=== PATIENT | female | born 1995 ===

== ENCOUNTER 2017-03-12 19:52 | Emergency (ER) | payer OTHER ==
[2017-03-12 19:55] VITALS: BP 129/77; PULSE 100; RESP 20; TEMP 99; O2SAT 99
[2017-03-12] MEDS ORDERED: Bacitracin 500 Units/gm Oint Foilpak UD TOP STA (20:00)
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
[2017-03-12 20:47] LABS: BASO % 0.5 % (0.0-2.0); EOS # 0.1 K/uL (0.0-0.7); EOS % 0.9 % (0.0-4.0); HEMATOCRIT 36.9 % (34.0-47.0); LYMPH # 2.1 K/uL (1.0-4.3); LYMPH % 23.9 % (20.0-40.0); MEAN CELL VOLUME 86.7 fl (81.0-99.0); MEAN CORPUSCULAR HEMOGLOBIN 28.9 pg (27.0-31.0); MEAN CORPUSCULAR HGB CONC 33.3 g/dL (33.0-37.0); MEAN PLATELET VOLUME 9.3 fl (7.2-11.7); MONO # 0.6 K/uL (0.0-0.8); MONO % 6.3 % (0.0-10.0); NEUT % 68.4 % (50.0-75.0); RED CELL DISTRIBUTION WIDTH 13.5 % (11.5-14.5); WHITE BLOOD COUNT 8.8 K/uL (4.8-10.8)
[2017-03-12 21:05] LABS: ALB/GLOB RATIO 1.1 (1.0-2.1); ALKALINE PHOSPHATASE 90 U/L (38-126); ALT/SGPT 124 U/L (9-52); AST/SGOT 63 U/L (14-36); BILIRUBIN,TOTAL 0.3 mg/dl (0.2-1.3); BLOOD UREA NITROGEN 11 mg/dl (7-17); CALCIUM 9.5 mg/dL (8.4-10.2); CARBON DIOXIDE 24 mmol/L (22-30); CHLORIDE 103 mmol/L (98-107); GFR AFRICAN-AMERICAN > 60; GLUCOSE,RANDOM 105 mg/dL (65-105); POTASSIUM 3.9 MMOL/L (3.6-5.0); SODIUM 140 mmol/l (132-148); TOTAL PROTEIN 8.6 G/DL (6.3-8.2)
--- NOTE | 2017-03-12 21:53 | US ---
EXAM: US Uterus CLINICAL HISTORY: 21 years old, female; Screening exam; Routine us, uterus; Additional info: Trauma TECHNIQUE: Real-time ultrasound of the maternal uterus with image documentation. COMPARISON: No relevant prior studies available. FINDINGS: Uterus: There is a well formed gestational sac within the endometrial canal. A pole and yolk sac are seen within the gestational sac. [place] rump length measurement correlates with an estimated gestational age of 8 weeks 3 days. cardiac activity is seen with a heart rate of 172 beats per minute. Adnexa: The ovaries are unremarkable in appearance. Free fluid: None. IMPRESSION: Single live IUP as above.
== END 2017-03-12 22:40 | disposition home or self-care (01) ==
LOC: H.ER 19:52
DX: S60.511A Abrasion of right hand, initial encounter (principal); W22.8XXA Striking against or struck by other objects, initial encounter; Y92.89 Other specified places as the place of occurrence of the external cause; Z33.1 Pregnant state, incidental

== ENCOUNTER 2017-10-11 15:05 | Emergency (ER) | payer OTHER ==
[2017-10-11] MEDS ORDERED: Phenaphthazine-PH Test Paper VI ONE (16:31)
--- NOTE | 2017-10-11 17:13 | OBHP ---
Datetime: 10/11/2017 16:00 IP Adm Impression: Term, intrauterine IP Admit Plan: Discharge home Admit Comment, IP Provider: 22 yo ega 40.00 based on LMP 01/04/2017 presents with suspected ROM and contractions,which began 1 day ago. She shares that she felt a gush of fluid while urinating. Sh e also shares of pelvic pain that feels like contractions every 5 minutes along with lumbar pain. She also noticed pink mucous discharge +: fm, ctx -: cp/sob/n/v pnc: n khloe gyne: hx of RPR + concentration in 08/27/2017 of 1:2 previously treated. medical hx: none famhx: htn, dm, pancreatic ca surg: none soc: denies smoking, etoh, illicit drugs rx: pnv NKDA Gen AAOX3 cardiac: s1 s2 no murmur lungs: clear bilaterally, no wheezing abdo: gravid, non tender, active bowel sounds negative; cvt, calf tenderness bedside Us: vertex, surrounding fluid pockets appreciated speculum: no pooling of fluid in vaginal canal pelvic: 1 cm, thick in -3 22 yo IUP 40.0 - false labor - JAC precautions given - dc home to f/u with pnc case dw Dr. Maria Teresa langley md [id number] Seen and examined with the resident and I agree with the above. Pelvic Type - PN: Adequate Extremities - PN: Normal Abdomen - PN: Normal Back - PN: Normal Breast - PN: Not Done Lungs - PN: Normal Heart - PN: Normal Thyroid - PN: Not Done Neurologic - PN: Normal HEENT - PN: Normal General - PN: Normal FHR - Baseline A Provider: 130 Pool Provider: Negative Nitrazine Provider: Negative EGA AdmitDate IP: 40.0 Vital Signs Provider: Reviewed; Within Normal Limits IP Chief Complaint: Uterine contractions; Suspected ruptured membranes NICHD Variability Prov Fetus A: Moderate 6-25bpm NICHD Accel Fetus A IP Provider: [id number] FHR Category Provider Fetus A: Category I NICHD Decel Fetus A IP Provider: None Dilatation, Provider: 1 Effacement, Provider: thick Station, Provider: -3 Genitourinary Exam: Normal DTRs - PN: Not Done
[2017-10-11 21:09] VITALS: BP 107/80; PULSE 106; TEMP 98; O2SAT 100
== END 2017-10-11 17:00 | disposition home or self-care (01) ==
LOC: H.EROB2 15:05
DX: O47.1 False labor at or after 37 completed weeks of gestation (principal); O34.63 Maternal care for abnormality of vagina, third trimester; N89.8 Other specified noninflammatory disorders of vagina; O26.93 Pregnancy related conditions, unspecified, third trimester; R10.2 Pelvic and perineal pain; Z3A.40 40 weeks gestation of pregnancy; O48.0 Post-term pregnancy